=== PATIENT | male | born 1945 | race Caucasian/White ===

== ENCOUNTER 2018-06-29 11:49 | Outpatient (REF) | payer MEDICARE, SELFPAY ==
[2018-06-29 19:15] LABS: HCT 37.2 % (40.0-50.0); HGB 12.1 g/dL (13.5-17.5); Mean Corp. HGB Concentration 32.5 g/dL (32.0-36.0); Mean Corpuscular Hemoglobin 29.3 pg (27.0-33.0); Mean Corpuscular Volume 90.1 fL (80-95); Mean Platelet Volume 10.7 fL (8.0-11.0); Platelet Count 289 x1000/uL (130-400); RBC 4.13 m/cumm (4.50-6.00); RBC Distribution Width 16.3 % (11.8-14.1); White Blood Cell Count 9.92 k/cumm (4.4-10.8)
[2018-06-29 19:52] LABS: BUN 27 mg/dL (7-18); CREATININE 1.66 mg/dL (0.70-1.30); Calcium 8.3 mg/dL (8.5-10.1); Chloride 106 mmol/L (98-107); Estimated GFR 41.04 (mL/min/1.73m2); Glucose 96 mg/dL (70-100); Potassium 4.7 mmol/L (3.5-5.1); Sodium 142 mmol/L (136-145)
== END 2018-06-29 12:09 ==
LOC: NCHCN 11:49
PROVIDERS: PCP Internal Medicine; Visit Provider Internal Medicine
DX: I10 Essential (primary) hypertension (principal); E87.1 Hypo-osmolality and hyponatremia; M13.169 Monoarthritis, not elsewhere classified, unspecified knee
CPT/HCPCS: 80048; 85027

== ENCOUNTER 2018-07-19 10:25 | Outpatient (REF) | payer MEDICARE, SELFPAY ==
[2018-07-19 20:54] LABS: HGB 12.8 g/dL (13.5-17.5); Mean Corp. HGB Concentration 32.8 g/dL (32.0-36.0); Mean Corpuscular Hemoglobin 29.7 pg (27.0-33.0); Mean Corpuscular Volume 90.5 fL (80-95); Mean Platelet Volume 10.8 fL (8.0-11.0); Platelet Count 283 x1000/uL (130-400); RBC 4.31 m/cumm (4.50-6.00); RBC Distribution Width 16.8 % (11.8-14.1); White Blood Cell Count 11.92 k/cumm (4.4-10.8)
[2018-07-19 21:41] LABS: Uric Acid 7.4 mg/dL (3.5-7.2)
== END 2018-07-19 10:45 ==
LOC: NCHCN 10:25
PROVIDERS: PCP Internal Medicine; Visit Provider Internal Medicine
DX: D64.9 Anemia, unspecified (principal); I10 Essential (primary) hypertension; E87.1 Hypo-osmolality and hyponatremia; M13.169 Monoarthritis, not elsewhere classified, unspecified knee
CPT/HCPCS: 85027; 84550

== ENCOUNTER 2019-05-24 21:27 | Outpatient (REF) | payer MEDICARE, SELFPAY ==
[2019-05-24 19:17] LABS: HCT 37.9 % (40.0-50.0); HGB 12.5 g/dL (13.5-17.5); Mean Corpuscular Hemoglobin 30.8 pg (27.0-33.0); Mean Corpuscular Volume 93.3 fL (80-95); Mean Platelet Volume 10.9 fL (8.0-11.0); Platelet Count 316 x1000/uL (130-400); RBC 4.06 m/cumm (4.50-6.00); RBC Distribution Width 14.7 % (11.8-14.1); White Blood Cell Count 7.85 k/cumm (4.4-10.8)
[2019-05-24 19:44] LABS: Anion Gap 8.5 mmol/L (3-11); BUN 20 mg/dL (7-18); CO2 27.5 mmol/L (21.0-32.0); CREATININE 2.19 mg/dL (0.70-1.30); Calcium 8.4 mg/dL (8.5-10.1); Chloride 105 mmol/L (98-107); Estimated GFR 29.72 (mL/min/1.73m2); Glucose 109 mg/dL (70-100); Sodium 141 mmol/L (136-145); Uric Acid 4.6 mg/dL (3.5-7.2)
== END 2019-05-24 21:47 ==
LOC: NCHCN 21:27
PROVIDERS: PCP Internal Medicine; Visit Provider Internal Medicine
DX: E87.1 Hypo-osmolality and hyponatremia (principal); I10 Essential (primary) hypertension; I63.9 Cerebral infarction, unspecified
CPT/HCPCS: 80048; 85027; 84550

== ENCOUNTER 2020-05-15 20:34 | Outpatient (REF) | payer MEDICARE, SELFPAY ==
[2020-05-15 19:11] LABS: HCT 39.8 % (40.0-50.0); HGB 12.6 g/dL (13.5-17.5); MCHC 31.7 % (32.0-36.0); MCV 91.7 fL (80-95); MPV 10.3 fL (8.0-11.0); Platelet Count 365 10^3/uL (130-400); RBC 4.34 10^6/uL (4.36-5.78); RDW 14.3 % (11.8-14.1); RDW-SD 48.4 fL; WBC 10.66 10^3/uL (4.4-10.8)
[2020-05-15 19:30] LABS: Albumin 3.1 g/dL (3.4-5.0); Anion Gap 9.1 mmol/L (3-11); BUN 23 mg/dL (7-18); CO2 25.9 mmol/L (21.0-32.0); CREATININE 1.76 mg/dL (0.70-1.30); Calcium 8.3 mg/dL (8.5-10.1); Chloride 101 mmol/L (98-107); Estimated GFR 38.15 (mL/min/1.73m2); Glucose 84 mg/dL (74-106); PHOSPHORUS 3.9 mg/dL (2.6-4.7); Potassium 4.1 mmol/L (3.5-5.1); Sodium 136 mmol/L (136-145); Uric Acid 4.9 mg/dL (3.5-7.2)
== END 2020-05-15 20:54 ==
LOC: NCHCN 20:34
PROVIDERS: PCP Internal Medicine; Visit Provider Internal Medicine
DX: M10.9 Gout, unspecified (principal); I10 Essential (primary) hypertension; N18.3 Chronic kidney disease, stage 3 (moderate)
CPT/HCPCS: 80069; 85027; 84550